=== PATIENT | male | born 1965 | race Caucasian/White ===

== ENCOUNTER → 2017-04-10 | Outpatient (CLI) | payer MEDICARE, OTHER, MEDICAID ==
[~2017-04-10] MED LIST: ASPIRIN EC81 MG PO; AUGMENTIN875 MG PO; B-1100 MG FT; B-COMPLEX PLUS1 EACH PO; DIFLUCAN ORA40 MG/ML PO; DIOCTO (= CO10 MG/ML PO; DULERA 200 MCG/51 EA INH; ENSURE ACTIVE414 ML PEG; FOLIC ACID1 MG FT; FOLIC ACID1 MG PO; FORADIL12 MCG INH; FORMOTEROL INH; GUAIATUSSIN AC L5 ML PO; IPRAT-ALBUT 0.5-3 ML INH; JEVITY 1 CAL1500 ML FT; KCL UD LIQ20 MEQ/15 FT; LEVAQUIN ORA25 MG/ML PEG; LEVOTHROID (SY25 MCG PO; LIPITOR80 MG PO; LORTAB ELIXI15 ML/UD FT; MAG-OX-400(241400 MG FT; MAG119MX PO; MARINOL 2.5MG2.5 MG PO; MILK OF MA400 MG/5 M FT; MIRALAX17 GM FT; NAPROSYN500 MG PO; NORCO 10-325 T1 EACH FT; OCEAN NASAL) (A44 ML NOSE; OXYGEN M-15 INH; POLY VI SOL DRO50 ML PO; PREDNISONE PEG; PREVACID30 M1 PO; PRILOSEC20 MG PO; PROTONIX40 MG PO; PROVENTIL OR V6.7 GM INH; REGLAN10 MG FT; ROBITUSSIN100 MG/5 M FT; ROXANOL 20MG20 MG/ML PO; SENOKOT SYRUP240 ML FT; SYMBICORT 16010.2 GM INH; TYLENOL LI160 MG/5 M PO; TYLENOL SO500 MG/15 FT; TYLENOL325 MG FT; VITAMIN B COMP1 EACH PO; VITAMIN B-1100 M1 PO; XARELTO15 MG GT; XARELTO20 MG PO; ZOFRAN ODT4 MG PO; ZOFRAN4 MG SL
== END | disposition disaster alternative care site (69) ==
LOC: GRAD 10:41
DX: C13.8 Malignant neoplasm of overlapping sites of hypopharynx (principal); C78.02 Secondary malignant neoplasm of left lung; K12.33 Oral mucositis (ulcerative) due to radiation; R50.9 Fever, unspecified; R13.19 Other dysphagia; R91.1 Solitary pulmonary nodule
CPT/HCPCS: Q9967

== ENCOUNTER 2017-06-02 11:43 | Inpatient (IN) | payer MEDICARE, OTHER, MEDICAID ==
[~2017-06-02] VITALS: Ht 175.3 cm; Wt 60.9 kg
--- NOTE | ~2017-06-02 | CON ---
PATIENT'S NAME: JOHN ROMAN [facility] AGE: 52 Y [address] ROOM: [id number] [place], [place] [address] LOCATION: GICU ADMIT DATE: 06/02/2017 Consultation DISCHARGE DATE: 06/03/2017 FAMILY PHYSICIAN: Ryan Ogden MD ATTENDING PHYSICIAN: Jordan Goddard CORRECTED COPY -- SIGNING PHYSICIAN / 06-09-2017 / ISAAC DATE OF CONSULTATION: 06/03/2017 TIME: 8:15 a.m. CHIEF COMPLAINT: Expressive aphasia. HISTORY OF PRESENT ILLNESS: This is a 52-year-old male who has a remote history of a left MCA stroke. He presented to the emergency room with family and they stated his expressive aphasia is much worse today. In addition, the patient was having chest pain. 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 Merrill. Of note, the patient did have a chemotherapy run with a low blood pressure. The patient did have a CT scan in the emergency room which did show the old stroke. In light of his cancer and the expressive aphasia worsening, he was admitted to the hospital for workup. He is out of the window for tPA when he presented to the emergency room because of an unknown last known well time which is best stated as the night before per his family and also because the patient is on Xarelto. On our exam, he denies any headache or dizziness or nausea. He is difficult to examine and he has perseverating. There is no family at the bedside at this time. As best as I can tell, he has been eating and drinking normally. He has no problems with chewing or swallowing. He has no numbness or tingling in his extremities, but does have some weakness in his right arm and right leg. This is from his stroke in 2014. PAST MEDICAL HISTORY: 1. The CVA with left MCA in 2014 with residual right arm and right leg weakness. He also has aphasia from this, some expressive and some receptive. 2. Head and neck cancer with pulmonary metastasis on chemotherapy. 3. Hyperlipidemia. 4. Chronic hypoxic and hypercapnic respiratory failure with COPD. 5. Dysphagia with history of aspiration. 6. History of PE on long-term anticoagulation with Xarelto. 7. Tobacco dependence. 8. History of alcohol abuse. PATIENT'S NAME: JOHN ROMAN [facility] AGE: 52 Y [address] ROOM: [id number] [place], [place] [address] LOCATION: GICU ADMIT DATE: 06/02/2017 Consultation DISCHARGE DATE: 06/03/2017 FAMILY PHYSICIAN: Ryan Ogden MD ATTENDING PHYSICIAN: Jordan Goddard CURRENT MEDICATIONS: 1. Xarelto 20 mg b.i.d. 2. Aspirin 81 mg p.o. daily. 3. Proventil 3 puffs p.o. q.i.d. p.r.n. shortness of breath. ALLERGIES: NO KNOWN ALLERGIES. FAMILY HISTORY: Negative for diabetes or kidney problems. His father did have heart troubles and leukemia but it is unknown when he . SOCIAL HISTORY: He is unmarried and lives in [place]. He continues to smoke half pack of cigarettes per day. He has a 84-[id number]-[id number] history. He also drinks about four alcoholic beverages per week. REVIEW OF SYSTEMS: All systems were reviewed and are negative as mentioned in the HPI. OBJECTIVE: VITAL SIGNS: Temperature 97.7, pulse 58, respirations 18, blood pressure was 98/74. GENERAL: He is disheveled and has poor hygiene. He is cooperative with the exam and smiles and laughs frequently. He is alert, but demonstrates expressive aphasia. SKIN: Supple, warm, and dry. HEENT: Normocephalic, atraumatic. Pupils are equal, round, and reactive to light and accommodation. Extraocular movements appear intact. He has poor dentition. NECK: Supple with no masses or adenopathy. He has no JVD. No nuchal rigidity noticed. No carotid bruits auscultated. HEART: Bradycardic but regular with occasional PVC. LUNGS: Coarse and diminished with some scattered end-expiratory wheezes. ABDOMEN: Soft, flat, and nontender. : Not done. RECTAL: Not done. EXTREMITIES: Mild clubbing and no cyanosis. NEUROLOGIC: Expressive aphasia as above. He also has receptive aphasia as far as following commands. Cranial nerves 2 through 12 are intact. Sensation appears normal. Strength is 5/5 in the left upper and lower. 3/5 in the right upper and 4/5 in right lower. DTRs around 1+. Gait was not observed. NIH is 2 for the aphasia. LABORATORY AND X-RAY DATA: PATIENT'S NAME: [facility] AGE: 52 Y [address] ROOM: [id number], [place] [address] LOCATION: [facility] ADMIT DATE: 06/02/2017 Consultation DISCHARGE DATE: 06/03/2017 FAMILY PHYSICIAN: Ryan Ogden MD ATTENDING PHYSICIAN: Jordan Goddard CT of the brain shows an old left MCA infarct without any acute abnormalities and MRI of the brain shows a remote left MCA distribution infarct and small left-sided pontine lacune. There is no cortical ischemia hemorrhage or mass lesion. The CTA does show a complete occlusion of the majority of the left ICA beginning at its origin. There is no evidence of right-sided carotid artery stenosis. There are wildly patent vertebral arteries. There is stable periaortic and AP window adenopathy. There are emphysematous changes with upper lungs bilaterally. There is occlusion of the left ICA up to the distal most aspect of the vessel which was filled in a retrograde fashion from the right-sided circulation. The left MCA and branch vessels are somewhat attenuated as compared to the right. In short, this is a 52-year-old male who presented to the emergency room with difficulties in examining because of lack of knowing what his baseline was. His workup does not show any new stroke. His variation from baseline may have been due to a low blood pressure and a low-flow state. Would recommend continuing the Xarelto and aspirin. Luckily, there are no lesions in the brain to suggest any sort of metastasis. We will continue the Xarelto and aspirin and mobilize the patient. From neurology standpoint, it is perfectly fine to discharge this patient home today. We would like to thank you for the opportunity to participate in this patient's plan of care. If you have any questions, please do not hesitate to notify us. KAYLI JORDAN APRN FOR GENO SAMUEL MD PP/gudelial /[id number] CORRECTED COPY -- SIGNING PHYSICIAN / 06-09-2017 / KLD d: 06/03/17 1122 t: 06/12/17 1414, CONSULTATION REPORT
--- NOTE | ~2017-06-02 | DS ---
PATIENT'S NAME: JOHN ROMAN [facility] AGE: 52 Y [address] ROOM: [id number] [place], [place] [address] LOCATION: [facility] ADMIT DATE: 06/02/2017 Discharge Summary DISCHARGE DATE: 06/03/2017 FAMILY PHYSICIAN: Ryan Ogden MD ATTENDING PHYSICIAN: Jordan Goddard [facility]: This is a 52-year-old male with past medical history of throat cancer with metastasis to the lung, history of CVA in 2014, occluded carotid artery, and history of emphysema. It looks like he has a history of seizure disorder and a history of alcohol abuse in the past, who was admitted for slurred speech and possibly some hallucinations and confusion. He was brought in to rule out a CVA and Neurology was consulted. He had a CT brain without contrast, which did not show any acute CVA. He also had a CT angio of his neck, which showed a complete occlusion of the majority of the left ICA beginning at its origin. No evidence of right-sided carotid artery stenosis. Widely patent vertebral artery. Stable periaortic and AP window adenopathy. Occlusion of the left ICA to the distal most aspect of the vessel, which was felt in a retrograde fashion from the right-sided circulation. There was somewhat attenuated left MCA and branch vessels as compared to the right side. No evidence of aneurysm or vascular malformation. He had an MRI of the brain, which also showed no acute finding of CVA. There is a remote left MCA distribution infarct and small left-sided pontine lacunar infarct, but like as I said no acute CVA. In view of this, he was also pancultured. He had a chest x-ray that showed stable x-ray of the chest. No acute findings as such. No pneumonia as such. His urinalysis was done and that was also negative for any UTI. His lactate was done and it was negative. There are no other acute findings. He also complained of some sort of a chest pain, but this was apparently resolved at the time of admission. He had troponins done, CPK and CK-MB that were all negative. He had a full CBC and CMP done, the only abnormality that is acute is maybe some mild hyponatremia of 133, and he was hydrated with normal saline and that raised up to 137. At the time of my evaluation, the patient is alert, awake, and oriented. He has some mild aphasia and Neurology opined that this is old and is most likely improved from the last time he had from his old stroke. Neurology has not given any further recommendations. Otherwise, he is stable to discharge per Neurology standpoint. I have also met his speed runner-oncologist, who has checked his TSH to be at 4+, and so therefore, she has requested that he be started on levothyroxine at the lowest dose of 12.5 mcg daily. He is to recheck his TSH in 6 weeks. He is to follow up with Neurology in 1 month. He is to follow up with his PCP in 1 week. Again, he needs to have another TSH rechecked in 6 weeks. He is to follow up with his speed runner-oncologist as scheduled. PHYSICAL EXAMINATION: VITAL SIGNS: At the time of discharge, the patient's PATIENT'S NAME: JOHN ROMAN [facility] AGE: 52 Y [address] ROOM: [place] [address] LOCATION: [facility] ADMIT DATE: 06/02/2017 Discharge Summary DISCHARGE DATE: 06/03/2017 FAMILY PHYSICIAN: Ryan Ogden MD ATTENDING PHYSICIAN: Jordan Goddard vitals are, he is afebrile. His heart rate is in the 60s. His respirations are in the 16s. His blood pressure is one teens over 80. He is saturating at 96% on 2 to 3 L of oxygen, which is a baseline oxygen. GENERAL APPEARANCE: Alert, awake, oriented. He has no acute distress. HEART: Regular rate and rhythm. No rales. No murmurs. LUNGS: Diminished. No crackles, no wheezing present. ABDOMEN: Soft, nontender. No guarding. No rigidity. No organomegaly. Bowel sounds are normal. EXTREMITIES: No pedal edema bilaterally. NEUROLOGIC: The patient is grossly neurologically normal other than some mild slurred speech. PSYCHIATRIC SWARTZ: He is alert, awake, and oriented. He is able to make his own decisions. DISCHARGE MEDICATIONS: I will resume his home dose of medications with no change in dosing; however, will add Lipitor 80 mg daily in view of his peripheral vascular disease and also his carotid stenosis. Also, will add levothyroxine 12.5 mcg daily as per speed runner-oncologist recommendations. MD MARBIN MORENO/placido /[id number] d: 06/04/17 0059 t: 06/05/17 1331, DISCHARGE SUMMARY
--- NOTE | ~2017-06-02 | HP ---
PATIENT'S NAME: JOHN ROMAN [facility] AGE: 52 Y [address] ROOM: [id number] [place] [address] LOCATION: GICU ADMIT DATE: 06/02/2017 History & Physical DISCHARGE DATE: FAMILY PHYSICIAN: Ryan Ogden MD ATTENDING PHYSICIAN: Jordan Goddard DATE OF SERVICE: CHIEF COMPLAINT: Expressive aphasia and chest pain. 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 The sequence in which these appeared is a little unclear to me. He did have an evaluation in the emergency room by the Neurology team and underwent a CT scan of the head, CT angiography, and MRI scan. The CT was stable from previous examination, but the angiography and MRI examinations are still pending. On his arrival to the floor, his speech is garbled and dysarthric. He is awake and responsive and appears to be able to comprehend and follows commands without difficulties. He denies headaches or dizziness and denies nausea. He does indicate some chest pain but cannot characterize it. He denies any significant shortness of breath. He has had some occasional cough which is not productive. He has been eating and drinking normally and denies noticing any problems with chewing or swallowing. No abdominal pain. No numbness or tingling in his extremities, but he does have some weakness in his right arm. This is apparently a chronic problem. PAST MEDICAL HISTORY: ALLERGIES: CODEINE. ILLNESSES: 1. CVA, left MCA in 2013 with residual right arm weakness. 2. Head and neck cancer with pulmonary metastases, on chemotherapy. 3. Hyperlipidemia. 4. Chronic hypoxic and hypercapnic respiratory failure with COPD. 5. Dysphagia with history of aspiration. 6. History of PE, on long-term anticoagulation with Xarelto. 7. Tobacco dependence. 8. History of alcohol abuse. PATIENT'S NAME: JOHN ROMAN [facility] AGE: 52 Y [address] ROOM: [id number] [place] [id number] LOCATION: [facility] ADMIT DATE: 06/02/2017 History & Physical DISCHARGE DATE: FAMILY PHYSICIAN: Ryan Ogden MD ATTENDING PHYSICIAN: Jordan Goddard CURRENT MEDICATIONS: 1. Xarelto 20 mg per G-tube b.i.d. 2. Aspirin 81 mg p.o. daily. 3. Proventil 2 puffs p.o. q.i.d. p.r.n. shortness of breath. FAMILY HISTORY: Negative for diabetes or kidney problems. Father had heart troubles and leukemia. SOCIAL HISTORY: He is unmarried and lives in [place]. He continues to smoke half pack to a pack of cigarettes per day. He has a [id number] history. He also drinks approximately four alcoholic beverages per week. REVIEW OF SYSTEMS: As per HPI. All other organ systems reviewed and are negative. OBJECTIVE: VITAL SIGNS: Temperature 97.7, pulse 57, respirations 18, blood pressure 113/82. GENERAL: He is disheveled, demonstrates poor hygiene. He is cooperative with examination, in no acute distress. He is alert but demonstrates expressive aphasia. SKIN: Supple, warm, and dry. There are some dirt and debris in the intertriginous areas. No obvious skin rashes. HEENT: Otherwise, normocephalic. Sclerae, nonicteric. Pupils equal, round, and reactive to light and accommodation. Extraocular movements appear intact. Nasal turbinates are normal in appearance. Oropharynx, clear. Mucous membranes are pink and moist. Dentition is in poor repair. NECK: Supple. No masses or adenopathy. No thyromegaly. No JVD. CHEST: Chest wall is symmetrical. HEART: Bradycardic but regular with occasional extrasystoles. LUNGS: Coarse and diminished with some scattered end-expiratory wheezes, right greater than left. ABDOMEN: Soft, flat, nontender. Bowel sounds present. No masses or hepatosplenomegaly. : Not done. RECTAL: Not done. EXTREMITIES: Display mild clubbing, no cyanosis. NEUROLOGIC: Expressive aphasia as above. Cranial nerves 2 through 12 are, otherwise, grossly intact. Sensation appears normal. Strength is 5/5 in the left upper and left lower extremity. A 3/5 in the right upper extremity and 4 to 5/5 in the right lower extremity. DTRs are 0 to 1+, roughly symmetrical. Gait is not observed. PATIENT'S NAME: JOHN ROMAN [facility] AGE: 52 Y [address] ROOM: [id number] [place], [place] [address] LOCATION: [facility] ADMIT DATE: 06/02/2017 History & Physical DISCHARGE DATE: FAMILY PHYSICIAN: Ryan Ogden MD ATTENDING PHYSICIAN: Jordan Goddard LABORATORY AND X-RAY DATA: CT scan of the brain shows an old left MCA infarct without any acute abnormalities. MRI scan and CT angiography are pending. CBC showed a white blood cell count 5.4, hemoglobin 15.5, hematocrit 44.3, platelets 236. Chemistries revealed BUN and creatinine of 12 and 0.8 respectively, sodium and potassium of 133 and 4.0, chloride and CO2 are 99 and 30, calcium is 8.9. AST and ALT of 10 and 13, bilirubin 0.5. Glucose was 87. Cardiac enzymes revealed a CPK of 61, troponin I of less than 0.04. BNP was minimally abnormal at 561. CK-MB 0.6. Procalcitonin was less than 0.05. Lactate was 0.6. ASSESSMENT AND PLAN: 1. Expressive aphasia with history of left middle cerebral artery stroke. Consider extension of the previous infarct. I am a little unclear about his baseline as he does have some longstanding expressive aphasia. Neurology has already seen him in the emergency room. We will await MRI scan results and follow up accordingly. In the meantime, we will augment his regimen with aspirin and statin therapy. We will discuss continuation of the Xarelto with Neurology. 2. Dysphagia, chronic with recurrent aspiration. He has previously had a PEG tube but that has since been removed. We will hold him n.p.o. until speech therapy can evaluate him. 3. Chest pain, difficult to characterize. We will trend cardiac enzymes and monitor on telemetry. We will review his cardiac history and consider Cardiology evaluation and perhaps cardiac stress testing. 4. Chronic hypoxic and hypercapnic respiratory failure with chronic obstructive pulmonary disease. Urged smoking cessation. Encourage good pulmonary hygiene and utilize bronchodilator therapy. 5. Right hemiplegia. We will request physical therapy and occupational therapy evaluation. 6. Head and neck cancer with pulmonary metastases, on chemotherapy, currently clinically stable. We will await MRI scan findings as there is some lingering concern for a solid lesion. 7. Deep venous thrombosis with history of pulmonary embolism. We will likely hold the Xarelto and will discuss with Neurology. 8. Alcohol abuse by history, currently stable. I have minimal concern for withdrawal, but we will monitor and manage accordingly. MD DANYELLE PASTOR/placido PATIENT'S NAME: JOHN ROMAN [facility] AGE: 52 Y [address] ROOM: [place] [address] LOCATION: [facility] ADMIT DATE: 06/02/2017 History & Physical DISCHARGE DATE: FAMILY PHYSICIAN: Ryan Ogden MD ATTENDING PHYSICIAN: Jordan Goddard /[id number] D: [id number] T: [id number] HISTORY & PHYSICAL
--- NOTE | ~2017-06-02 | ER ---
PATIENT'S NAME: JOHN ROMAN [facility] AGE: 52 Y [address] ROOM: [id number] [place], [place] [address] LOCATION: GICU ADMIT DATE: 06/02/2017 ER/Outpatient Report DISCHARGE DATE: FAMILY PHYSICIAN: Ryan Ogden MD ATTENDING PHYSICIAN: Jordan Goddard CHIEF COMPLAINT: Chest pain. TIME OF THE PATIENT ARRIVAL: 1143 hours. TIME OF THE PATIENT EVALUATION: 1200 hours. HISTORY OF PRESENT ILLNESS: This is a 52-year-old male with an extensive medical history who was brought in today by his daughter. The patient was last seen in his normal state last evening by his other daughter who was currently not here. They state today they have noticed that his speech is slurred and he is not making any sense. They believe that he is also having a few hallucinations. The patient also is complaining of chest pain and he motions that it is in the middle of his chest. When asked if he feel short of breath, he says yes, and his daughter states that he always feels short of breath. He denies feeling nauseated. He has had no vomiting. No diaphoresis. Daughter states he does have a history of throat cancer, which has metastasized to his lung. He has had a stroke, which has also altered his speech and has a carotid artery that is occluded as well. He does have a history of COPD. He has been doctoring with Dr. Omar Ogden and Dr. Merrill. He states he was recently in Dr. Merrill' office for some IV fluids. The patient shakes his head when you ask him if he feels weak in his extremities. He denies any other problems at this time. ALLERGIES: CODEINE. MEDICATIONS: Please see medication list nurse's notes. PAST MEDICAL HISTORY: Throat cancer with metastasis to the lung, history of CVA in 2013, occluded carotid artery, history of emphysema, looks like he has a history of a seizure disorder, and history of alcohol abuse in the past. SOCIAL HISTORY: He smokes cigarettes and continues to smoke cigarettes and does drink alcohol PATIENT'S NAME: JOHN ROMAN [facility] AGE: 52 Y [address] ROOM: [id number] [place], [place] [address] LOCATION: GICU ADMIT DATE: 06/02/2017 ER/Outpatient Report DISCHARGE DATE: FAMILY PHYSICIAN: Ryan Ogden MD ATTENDING PHYSICIAN: Jordan Goddard. REVIEW OF SYSTEMS: All systems reviewed were negative with the exception of those discussed in the HPI. PHYSICAL EXAMINATION: VITAL SIGNS: Weight 58 kg taken, blood pressure is 93/73, pulse 75, respirations 20, temperature 96.7 degrees tympanically, and saturations 88% to 92% on room air. [place] Coma Score is 14. GENERAL: Alert, thin male, in no obvious distress. HEENT: Head: Normocephalic. He does display moist mucous membranes. Eyes: Pupils are equal and reactive to light. NECK: Supple. No lymphadenopathy. LUNGS: He has a scattered wheezes throughout with a harsh cough and the wheezes were clear. HEART: Regular rate and rhythm. ABDOMEN: Soft, it is nontender. He has good bowel sounds throughout. EXTREMITIES: No clubbing or cyanosis. He does have full range of motion of his limbs. He has equal strength bilaterally upper and lower extremities. SKIN: Warm, dry, and intact. NEURO: Cranial nerves 2 through 12 grossly intact. Gait was assisted by daughter. We did do a MAUREEN stroke scale, where he did score 4 on that. The patient would try to say words, but his speech was slurred, and he was unable to identify what he was actually trying to say. LABORATORY DATA: White count is 5.4, hemoglobin is 15.5, platelets 236, ANC is 3.8, INR is 1.04. CMS sodium was 133, potassium 4.0, otherwise unremarkable. Magnesium is 1.9, CPK 61, CK-MB is 0.6, troponin I is less than 0.040, lactate is 0.6. Pro-BNP is 561. Procalcitonin is less than 0.05. EKG initially shows sinus rhythm, later in his ER stay, he did become bradycardic, but still in a sinus bradycardia. Chest x-ray, no clear infiltrate. IMPRESSION: 1. Symptoms of stroke with aphasia. 2. Chest pain has subsided since he has been here in the emergency room. 3. History of throat cancer with metastasis to the lung. 4. History of carotid artery disease. ASSESSMENT AND PLAN: The patient was not a tPA candidate with an unknown start time of his aphasia. Discussed the patient's care with Dr. Parker. Dr. Parker also evaluated the patient. We did access his port and did give him some IV fluids. The patient rested comfortably his entire stay and his chest pain did go away while he was PATIENT'S NAME: JOHN ROMAN [facility] AGE: 52 Y [address] ROOM: [id number] [place] [id number] LOCATION: [facility] ADMIT DATE: 06/02/2017 ER/Outpatient Report DISCHARGE DATE: FAMILY PHYSICIAN: Ryan Ogden MD ATTENDING PHYSICIAN: Jordan Goddard here. I did speak with Danielle Herbert with Neurology and she did come and evaluate the patient. I also spoke with Dr. Goddard who is on-call for the Hospitalist Service and he will be admitting the patient for further observation. The patient and the patient's daughter understand and agree with care. CARLOS THOMPSON PA-C FOR MD EVER DAVIS/placido /[id number] d: 06/03/17 0105 t: 06/06/17 0913, OUTPATIENT REPORT
[~2017-06-02 11:43] MED LIST changes: -LEVOTHROID (SY25 MCG PO
[2017-06-02 12:34] LABS: BASOPHIL % 0.7 %; EOSINOPHIL # 0.1 K/uL (0.0-0.5); HEMATOCRIT 44.3 % (37.0-53.0); HEMOGLOBIN 15.5 g/dL (12.0-17.0); IMMATURE GRANULOCYTE % 0.2 %; LYMPHOCYTE # 0.8 K/uL (0.8-4.0); LYMPHOCYTE % 15.4 %; MCH 32.6 pg (27.0-34.0); MCV 93.1 fl (83.0-98.0); MONOCYTE # 0.6 K/uL (0.0-1.0); MONOCYTE % 10.9 %; MPV 10.7 fl (9.4-12.4); NEUTROPHIL # (ANC) 3.8 K/uL (1.4-9.0); NEUTROPHIL % 70.8 %; NRBC % 0 /100WBC (0-0.00); PLATELET COUNT 236 K/uL (150-450); RBC 4.76 M/uL (4.00-6.00); RDW-CV 14.4 % (11.9-14.6); WBC 5.4 K/uL (4.0-11.0)
[2017-06-02 12:45] LABS: INR - (THERAPEUTIC) 1.04 (0.92-1.07); PROTIME 10.9 SECONDS (9.8-11.4); PTT 30 SECONDS (25-32)
[2017-06-02 13:02] LABS: ALBUMIN 3.4 gm/dL (3.5-5.0); ALK PHOS 54 IU/L (33-138); ALT 13 IU/L (12-78); AST 10 IU/L (10-40); BLOOD UREA NITROGEN 12 mg/dL (6-24); CALCIUM 8.9 mg/dL (8.5-10.5); CHLORIDE 99 mMol/L (96-110); CO2 30 mMol/L (22-32); CPK 61 IU/L (35-332); CREATININE 0.8 mg/dL (0.6-1.3); MAGNESIUM 1.9 mg/dL (1.8-2.6); SODIUM 133 mMol/L (135-145); TOTAL BILIRUBIN 0.5 mg/dL (0.0-1.5); TOTAL PROTEIN 6.9 g/dL (6.0-8.4)
[2017-06-02 14:38] LABS: CPK 54 IU/L (35-332)
[2017-06-02] MEDS ORDERED: PROVENTIL OR V6.7 GM INH (17:36)
[2017-06-03 01:34] LABS: CPK 57 IU/L (35-332)
[2017-06-03 07:21] LABS: BASOPHIL % 0.7 %; EOSINOPHIL # 0.2 K/uL (0.0-0.5); EOSINOPHIL % 2.9 %; HEMATOCRIT 42.3 % (37.0-53.0); HEMOGLOBIN 14.6 g/dL (12.0-17.0); IMMATURE GRANULOCYTE # 0.1 K/uL (0.0-0.3); IMMATURE GRANULOCYTE % 0.9 %; LYMPHOCYTE # 0.8 K/uL (0.8-4.0); LYMPHOCYTE % 12.9 %; MCH 32.4 pg (27.0-34.0); MCHC 34.5 gm/dL (32.0-36.5); MCV 93.8 fl (83.0-98.0); MONOCYTE # 0.7 K/uL (0.0-1.0); MONOCYTE % 11.2 %; MPV 10.4 fl (9.4-12.4); NEUTROPHIL # (ANC) 4.2 K/uL (1.4-9.0); NEUTROPHIL % 71.4 %; NRBC % 0 /100WBC (0-0.00); PLATELET COUNT 226 K/uL (150-450); RBC 4.51 M/uL (4.00-6.00); RDW-CV 14.5 % (11.9-14.6); WBC 5.9 K/uL (4.0-11.0)
[2017-06-03 07:27] LABS: ALBUMIN 3.1 gm/dL (3.5-5.0); ANION GAP 10.1 (10.0-19.0); BLOOD UREA NITROGEN 7 mg/dL (6-24); CALCIUM 8.3 mg/dL (8.5-10.5); CHLORIDE 101 mMol/L (96-110); CO2 30 mMol/L (22-32); CPK 57 IU/L (35-332); CREATININE 0.8 mg/dL (0.6-1.3); PHOSPHORUS 3.1 mg/dL (2.5-4.9); POTASSIUM 4.1 mMol/L (3.7-5.1); SODIUM 137 mMol/L (135-145)
[2017-06-03] MEDS ORDERED: LIPITOR80 MG PO (11:22)
[2017-06-03] MEDS ORDERED: LEVOTHROID (SY25 MCG PO (11:33)
== END 2017-06-03 13:20 | disposition disaster alternative care site (69) | DRG 92 ==
LOC: GMED 11:43 → GICU 14:04
PROVIDERS: Family Medicine; ADMIT Family Medicine
DX: R47.81 Slurred speech (principal); C78.00 Secondary malignant neoplasm of unspecified lung; G81.91 Hemiplegia, unspecified affecting right dominant side; R41.0 Disorientation, unspecified; J44.9 Chronic obstructive pulmonary disease, unspecified; F10.21 Alcohol dependence, in remission; I65.22 Occlusion and stenosis of left carotid artery
CPT/HCPCS: J7030

== ENCOUNTER → 2017-07-06 | Outpatient (CLI) | payer MEDICARE, OTHER, MEDICAID ==
[~2017-07-06] MED LIST changes: +LEVOTHROID (SY25 MCG PO
== END | disposition disaster alternative care site (69) ==
LOC: GRAD 08:55
DX: C76.0 Malignant neoplasm of head, face and neck (principal); C13.8 Malignant neoplasm of overlapping sites of hypopharynx; C78.02 Secondary malignant neoplasm of left lung; K12.33 Oral mucositis (ulcerative) due to radiation; R50.9 Fever, unspecified; R13.19 Other dysphagia; J06.9 Acute upper respiratory infection, unspecified; E03.2 Hypothyroidism due to medicaments and other exogenous substances; S96.212A Strain of intrinsic muscle and tendon at ankle and foot level, left foot, initial encounter; Z51.12 Encounter for antineoplastic immunotherapy; Z72.0 Tobacco use; I65.22 Occlusion and stenosis of left carotid artery